=== PATIENT | male | born 1965 | race Caucasian/White ===

== ENCOUNTER 2017-11-21 05:22 | Inpatient (IN) | payer OTHER ==
[2017-11-21] MEDS ORDERED: Lactated Ringer's 2,000 ML IV STA (05:48)
--- NOTE | 2017-11-21 05:48 | C.PDOC ---
History Of Present Illness Pt presents with sudden onset of left flank pain radiating towards the groin. No f/c/n/v. pain is sharp, stabbing, mild dysuria Time Seen by Provider: 11/21/17 05:47 Chief Complaint (Nursing): Male Genitourinary History Per: Patient History/Exam Limitations: no limitations Onset/Duration Of Symptoms: Hrs Current Symptoms Are (Timing): Worse Severity: Severe Pain Scale Rating Of: 8 Quality Of Discomfort: Sharp, Cramping, Pressure, Stabbing Associated Symptoms: denies: Fever, Chills, Nausea, Vomiting Alleviating Factors: None Recent travel outside of the [place]: No Additional History Per: Family Past Medical History Reviewed: Historical Data, Nursing Documentation, Vital Signs Vital Signs: Last Vital Signs Temp 97.5 F L 11/21/17 05:32 Pulse 79 11/21/17 06:48 Resp 22 11/21/17 06:48 BP 100/57 L 11/21/17 06:48 Pulse Ox 95 11/21/17 06:48 Family History: States: No Known Family Hx - Social History Hx Alcohol Use: No Hx Substance Use: No - Immunization History Hx Influenza Vaccination: No Hx Pneumococcal Vaccination: No Review Of Systems Constitutional: Negative for: Fever, Chills Eyes: Negative for: Redness ENT: Negative for: Throat Pain Cardiovascular: Negative for: Chest Pain Respiratory: Negative for: Shortness of Breath Gastrointestinal: Positive for: Abdominal Pain. Negative for: Nausea, Vomiting Genitourinary: Negative for: Dysuria Musculoskeletal: Negative for: Back Pain Skin: Negative for: Rash Neurological: Negative for: Weakness Psych: Negative for: Anxiety Physical Exam - Physical Exam Appears: In Acute Distress Skin: Warm, Dry Head: Normacephalic Eye(s): bilateral: Normal Inspection Oral Mucosa: Moist Neck: Supple Chest: Symmetrical Cardiovascular: Rhythm Regular Respiratory: No Rales, No Rhonchi, No Wheezing Gastrointestinal/Abdominal: Soft, Tenderness (left flank), No Distention, No Guarding Back: CVA Tenderness (left) Male Genital: No Testicular Swelling, No Inguinal Tenderness Extremity: No Tenderness Extremity: Bilateral: Atraumatic Pulses: Left Dorsalis Pedis: Normal, Right Dorsalis Pedis: Normal Neurological/Psych: Oriented x3, Normal Speech, Normal Cognition Gait: Steady ED Course And Treatment - Laboratory Results Result Diagrams: 11/21/17 05:59 11/21/17 05:59 O2 Sat by Pulse Oximetry: 100 Pulse Ox Interpretation: Normal Disposition Counseled Patient/Family Regarding: Studies Performed, Diagnosis - Disposition Disposition Time: 05:48 Condition: UNKNOWN Forms: [facility] ([place]) - Clinical Impression Clinical Impression: Renal colic on left side Physician Patient Turnover Patient Signed Over To: Darrion Cardenas Handoff Comments: pending labs, ct scan and re-eval
[2017-11-21] MEDS ORDERED: Lactated Ringer's 2,000 ML ONE (05:57)
[2017-11-21 06:04] LABS: BASO # 0.1 K/uL (0.0-0.2); BASO % 0.7 % (0.0-2.0); EOS # 0.2 K/uL (0.0-0.7); EOS % 1.6 % (0.0-4.0); HEMOGLOBIN 14.4 g/dL (12.0-18.0); LYMPH # 3.8 K/uL (1.0-4.3); LYMPH % 40.1 % (20.0-40.0); MEAN CORPUSCULAR HEMOGLOBIN 32.6 pg (27.0-31.0); MEAN CORPUSCULAR HGB CONC 35.8 g/dL (33.0-37.0); MEAN PLATELET VOLUME 9.3 fL (7.2-11.7); MONO # 0.6 K/uL (0.0-0.8); MONO % 6.2 % (0.0-10.0); NEUT # 4.9 K/uL (1.8-7.0); NEUT % 51.4 % (50.0-75.0); NRBC % 0.1 % (0.0-2.0); RBC 4.41 Mil/uL (4.40-5.90); RED CELL DISTRIBUTION WIDTH 12.5 % (11.5-14.5); WHITE BLOOD COUNT 9.6 K/uL (4.8-10.8)
[2017-11-21 06:12] LABS: ALB/GLOB RATIO 1.4 (1.0-2.1); ALBUMIN 3.9 g/dL (3.5-5.0); ALT/SGPT 55 U/L (21-72); AST/SGOT 25 U/L (17-59); BLOOD UREA NITROGEN 15 mg/dL (9-20); CALCIUM 8.7 mg/dl (8.6-10.4); GFR AFRICAN-AMERICAN > 60; GFR NON-AFRICAN AMERICAN > 60; LIPASE 50 U/L (23-300)
--- NOTE | 2017-11-21 06:51 | CT ---
EXAM: CT Abdomen and Pelvis Without Intravenous Contrast CLINICAL HISTORY: 52 years old, male; Pain; Abdominal pain; Flank; Left lower quadrant (llq); Additional info: Left flank pain TECHNIQUE: Axial computed tomography images of the abdomen and pelvis without intravenous contrast. All CT scans at this facility use one or more dose reduction techniques, viz.: automated exposure control; ma/kV adjustment per patient size (including targeted exams where dose is matched to indication; i.e. head); or iterative reconstruction technique. Coronal and sagittal reformatted images were created and reviewed. COMPARISON: No relevant prior studies available. FINDINGS: Lower thorax: Minimal atelectasis. ABDOMEN: Liver: Fatty infiltration. Gallbladder and bile ducts: No calcified stones. No ductal dilation. Pancreas: Unremarkable. No ductal dilation. Spleen: No splenomegaly. Adrenals: No mass. Kidneys and ureters: 3.0 cm hypodense lesion within left kidney. No renal calculi. Mild pelvocaliectasis of LEFT kidney. Mildly dilated LEFT ureter. 0.3 x 0.3 x 0.2 cm calculus at or just beyond LEFT ureterovesical junction. Stomach and bowel: Probable underdistention of LEFT colon. No definite mural thickening. No obstruction. Appendix: Normal caliber. No inflammation. PELVIS: Bladder: Unremarkable. No stones. Reproductive: Unremarkable as visualized. ABDOMEN and PELVIS: Intraperitoneal space: No significant fluid collection. No free air. Bones/joints: Early degenerative changes of spine. No acute fracture. Soft tissues: Tiny umbilical hernia containing fat. Vasculature: Unremarkable. No aneurysm. Lymph nodes: No pathologically enlarged lymph nodes. IMPRESSION: 1. LEFT distal ureteral calculus with mild hydroureteronephrosis. 2. Kidney lesion, can completely characterized. Suggest nonemergent ultrasound or MRI. 3. Incidental/non-acute findings are described above.
[2017-11-21] MEDS ORDERED: Potassium Chloride 20 mEq ER Tab PO STA (07:02)
[2017-11-21] MEDS ORDERED: Potassium Chloride 20 mEq ER Tab PO ONE ×3 (07:44→11:38)
[2017-11-21 07:52] LABS: URINE BILIRUBIN NEGATIVE (NEGATIVE); URINE BLOOD 3+ (NEGATIVE); URINE CLARITY Clear (Clear); URINE COLOR Straw (YELLOW); URINE GLUCOSE (UA) NORMAL (Normal); URINE LEUKOCYTE ESTERASE NEG Leu/uL (Negative); URINE NITRATE NEGATIVE (NEGATIVE); URINE PROTEIN NEGATIVE (NEGATIVE); URINE UROBILINOGEN NORMAL mg/dL (0.2-1.0)
[2017-11-21] MEDS ORDERED: Morphine 4 MG/ML VIAL ONE (07:57)
--- NOTE | 2017-11-21 11:25 | CP.PCM.HP ---
History of Present Illness - History of Present Illness History of Present Illness: CC: "I have pain in the left side of my back and into the stomach" HPI: Mr García is a 52 year old male who presented to the emergency room with pain in his left flank. Patient reports that at 5 PM on 11/20/17 he had pain in his penis when using the bathroom and pain dissipated after using the bathroom. At 4 AM on 11/21/17, patient woke up to use the bathroom and experienced pain in his left flank region radiating into his epigastric region. He describes the pain as sharp and stabbing and rates the pain as 10/10 before coming to the emergency room. This is the first time he's had pain like this. Patient was given Morphine and Toradol in the ER and reports a reduction in his pain and rates it 3/10 currently. He also reports using the bathroom and reports no pain when doing so. Patient denies any nausea, vomiting, constipation , diarrhea currently. Patient had a abdominal CT which showed left distal ureteral calculus with mild hydrouretoronephrosis. PMD: Patient reports not having a PMD due to lack of insurance. PMH: Non-contributory PSHx: Non-contributory Allergies: NKDA Home Medications: Patient reports taking Advil at home for pain Social Hx: Social alcohol use. Denies cigarette and illicit drug use. Lives at home with and 3 kids. 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 Family Hx: Father is a prostate and colon cancer survivor, currently 89. Mother is alive and well. Patient has 2 aunts with DM. Present on Admission - Present on Admission Any Indicators Present on Admission: No Review of Systems - Constitutional Constitutional: absent: Chills, Fever - EENT Eyes: absent: Change in Vision - Cardiovascular Cardiovascular: absent: Chest Pain - Respiratory Respiratory: absent: Cough - Gastrointestinal Gastrointestinal: absent: Constipation, Diarrhea, Nausea, Vomiting - Genitourinary Genitourinary: Dysuria, Flank Pain - Integumentary Integumentary: absent: Bleeding Lesions - Neurological Neurological: absent: Dizziness Past Patient History - Past Social History Smoking Status: Never Smoked - PSYCHIATRIC Hx Substance Use: No - SURGICAL HISTORY Hx Surgeries: No - ANESTHESIA Hx Anesthesia: No Meds Allergies/Adverse Reactions: Allergies Allergy/AdvReac Type Severity Reaction Status Date / Time No Known Allergies Allergy Verified 11/21/17 05:37 Physical Exam - Constitutional Appears: In Acute Distress - Head Exam Head Exam: ATRAUMATIC, NORMAL INSPECTION - Eye Exam Eye Exam: EOMI Pupil Exam: PERRL - ENT Exam ENT Exam: Mucous Membranes Moist - Neck Exam Neck exam: Positive for: Normal Inspection. Negative for: Tenderness - Respiratory Exam Respiratory Exam: Clear to Auscultation Bilateral, NORMAL BREATHING PATTERN. absent: Rales, Rhonchi, Wheezes - Cardiovascular Exam Cardiovascular Exam: REGULAR RHYTHM, +S1, +S2. absent: Bradycardia, Tachycardia , JVD, Systolic Murmur - GI/Abdominal Exam GI & Abdominal Exam: Guarding, Normal Bowel Sounds, Tenderness. absent: Distended, Firm Additional comments: Left flank pain radiating into abdomen - Extremities Exam Extremities exam: Positive for: full ROM, normal inspection. Negative for: tenderness - Back Exam Back exam: CVA tenderness (L). absent: rash noted - Neurological Exam Neurological exam: Alert, Normal Gait, Oriented x3 - Psychiatric Exam Psychiatric exam: Normal Affect, Normal Mood - Skin Skin Exam: Intact, Normal Color, Warm Results - Vital Signs Recent Vital Signs: Last Vital Signs Temp 98.9 F 11/21/17 07:59 Pulse 82 11/21/17 07:59 Resp 20 11/21/17 07:59 BP 117/72 11/21/17 07:59 Pulse Ox 99 11/21/17 07:59 - Labs Result Diagrams: 11/21/17 05:59 11/21/17 05:59 Labs: Laboratory Results - last 24 hr 11/21/17 11/21/17 11/21/17 05:59 05:59 07:37 WBC 9.6 RBC 4.41 Hgb 14.4 Hct 40.1 MCV 91.0 MCH 32.6 H MCHC 35.8 RDW 12.5 Plt Count 244 MPV 9.3 Neut % (Auto) 51.4 Lymph % (Auto) 40.1 H [place] % (Auto) 6.2 Eos % (Auto) 1.6 Baso % (Auto) 0.7 Neut # 4.9 Lymph # 3.8 [place] # 0.6 Eos # 0.2 Baso # 0.1 Sodium 134 Potassium 3.1 L Chloride 101 Carbon Dioxide 21 L Anion Gap 15 BUN 15 Creatinine 1.0 Est GFR ( Amer) > 60 Est GFR (Non-Af Amer) > 60 Random Glucose 159 H Calcium 8.7 Total Bilirubin 2.1 H AST 25 ALT 55 Alkaline Phosphatase 86 Total Protein 6.7 Albumin 3.9 Globulin 2.8 Albumin/Globulin Ratio 1.4 Lipase 50 Urine Color Straw Urine Clarity Clear Urine pH 6.0 Ur Specific [place] 1.013 Urine Protein Negative Urine Glucose (UA) Normal Urine Ketones Trace Urine Blood 3+ H Urine Nitrate Negative Urine Bilirubin Negative Urine Urobilinogen Normal Ur Leukocyte Esterase Neg Urine WBC (Auto) 1 Urine RBC (Auto) 24 H Assessment & Plan (1) Renal colic on left side Assessment and Plan: Urology consult, Dr Sigrid Catalan UA with 3+ blood and RBC 24 (high) F/U Urine culture, Blood culture Imaging: CT abd/pelvis w/o PO or IV contrast 11/21: 3.0cm hypodense lesion within left kidney. No renal calculi. Mild pelvocaliectasis of LEFT kidney. Mildly dilated LEFT ureter. 0.3x0.3x0.2cm calculus at or just beyond LEFT ureterovesical junction. Mild hydroureteronephrosis. XRAY abd w/ obl 11/21: Distal left ureteral calculus identified on CT is not evident on these plain radiographs Meds: Ketorolac 30mg IVP Q6H PRN for pain Zofram 4mg IVP Q12H PRN for N/V Lactated Ringer 100cc/hr Abx not indicated - no leukocytosis, UA clean, afebrile Status: Acute (2) Prophylactic measure Assessment and Plan: SCDs, Pharmacotherapy for VTE prophylaxsis not indicated Pepcid 40mg PO QD NPO for now Status: Acute
--- NOTE | 2017-11-21 11:37 | RAD ---
HISTORY: urolithiasis /3mm distal ureteral stone COMPARISON: No prior. FINDINGS: BOWEL: Normal bowel gas pattern. No intra-abdominal mass. No hepatic or splenic enlargement. Right pelvic calculus identified, consistent with phlebolith. The distal left ureteral calculus identified on CT examination of the same date is not evident on these plain radiographs. No renal calculus identified. BONES: Normal. OTHER FINDINGS: None. IMPRESSION: Distal left ureteral calculus identified on CT examination is not evident on these plain radiographs.
[2017-11-21] MEDS ORDERED: Lactated Ringer's 1,000 ML IV SCH (12:45)
[2017-11-21] MEDS ORDERED: Lactated Ringer's 1,000 ML ONE (12:58)
[2017-11-21 14:46] VITALS: BP 97/67; PULSE 78; RESP 18; TEMP 97.9; O2SAT 98
[2017-11-21] MEDS ORDERED: Naproxen 550 mg Tab PO ONE (15:37)
--- NOTE | 2017-11-21 17:13 | CP.PCM.DIS ---
Provider - Provider Date of Admission: 11/21/17 08:40 Attending physician: Jr Mendez MD Primary care physician: None Consults: Urology: Dr Sigrid Catalan Time Spent in preparation of Discharge (in minutes): 40 Diagnosis - Discharge Diagnosis (1) Renal colic on left side Status: Acute Priority: Medium (2) Prophylactic measure Status: Acute Priority: Low Hospital Course - Lab Results Lab Results: Most Recent Lab Values WBC 9.6 K/uL (4.8-10.8) 11/21/17 05:59 RBC 4.41 Mil/uL (4.40-5.90) 11/21/17 05:59 Hgb 14.4 g/dL (12.0-18.0) 11/21/17 05:59 Hct 40.1 % (35.0-51.0) 11/21/17 05:59 MCV 91.0 fL (80.0-94.0) 11/21/17 05:59 MCH 32.6 pg (27.0-31.0) H 11/21/17 05:59 MCHC 35.8 g/dL (33.0-37.0) 11/21/17 05:59 RDW 12.5 % (11.5-14.5) 11/21/17 05:59 Plt Count 244 K/uL (130-400) 11/21/17 05:59 MPV 9.3 fL (7.2-11.7) 11/21/17 05:59 Neut % (Auto) 51.4 % (50.0-75.0) 11/21/17 05:59 Lymph % (Auto) 40.1 % (20.0-40.0) H 11/21/17 05:59 [place] % (Auto) 6.2 % (0.0-10.0) 11/21/17 05:59 Eos % (Auto) 1.6 % (0.0-4.0) 11/21/17 05:59 Baso % (Auto) 0.7 % (0.0-2.0) 11/21/17 05:59 Neut # 4.9 K/uL (1.8-7.0) 11/21/17 05:59 Lymph # 3.8 K/uL (1.0-4.3) 11/21/17 05:59 [place] # 0.6 K/uL (0.0-0.8) 11/21/17 05:59 Eos # 0.2 K/uL (0.0-0.7) 11/21/17 05:59 Baso # 0.1 K/uL (0.0-0.2) 11/21/17 05:59 Sodium 134 mmol/L (132-148) 11/21/17 05:59 Potassium 3.1 mmol/L (3.6-5.2) L 11/21/17 05:59 Chloride 101 mmol/L (98-107) 11/21/17 05:59 Carbon Dioxide 21 mmol/L (22-30) L 11/21/17 05:59 Anion Gap 15 (10-20) 11/21/17 05:59 BUN 15 mg/dL (9-20) 11/21/17 05:59 Creatinine 1.0 mg/dL (0.8-1.5) 11/21/17 05:59 Est GFR ( Amer) > 60 11/21/17 05:59 Est GFR (Non-Af Amer) > 60 11/21/17 05:59 Random Glucose 159 mg/dL (75-110) H 11/21/17 05:59 Calcium 8.7 mg/dl (8.6-10.4) 11/21/17 05:59 Total Bilirubin 2.1 mg/dL (0.2-1.3) H 11/21/17 05:59 AST 25 U/L (17-59) 11/21/17 05:59 ALT 55 U/L (21-72) 11/21/17 05:59 Alkaline Phosphatase 86 U/L (38-126) 11/21/17 05:59 Total Protein 6.7 g/dL (6.3-8.3) 11/21/17 05:59 Albumin 3.9 g/dL (3.5-5.0) 11/21/17 05:59 Globulin 2.8 gm/dL (2.2-3.9) 11/21/17 05:59 Albumin/Globulin Ratio 1.4 (1.0-2.1) 11/21/17 05:59 Lipase 50 U/L (23-300) 11/21/17 05:59 Urine Color Straw (YELLOW) 11/21/17 07:37 Urine Clarity Clear (Clear) 11/21/17 07:37 Urine pH 6.0 (5.0-8.0) 11/21/17 07:37 Ur Specific [place] 1.013 (1.003-1.030) 11/21/17 07:37 Urine Protein Negative mg/dL (NEGATIVE) 11/21/17 07:37 Urine Glucose (UA) Normal mg/dL (Normal) 11/21/17 07:37 Urine Ketones Trace mg/dL (NEGATIVE) 11/21/17 07:37 Urine Blood 3+ (NEGATIVE) H 11/21/17 07:37 Urine Nitrate Negative (NEGATIVE) 11/21/17 07:37 Urine Bilirubin Negative (NEGATIVE) 11/21/17 07:37 Urine Urobilinogen Normal mg/dL (0.2-1.0) 11/21/17 07:37 Ur Leukocyte Esterase Neg [place]/uL (Negative) 11/21/17 07:37 Urine WBC (Auto) 1 /hpf (0-5) 11/21/17 07:37 Urine RBC (Auto) 24 /hpf (0-3) H 11/21/17 07:37 - Hospital Course Hospital Course: CC: "I have pain in the left side of my back and into the stomach" HPI: Mr García is a 52 year old male who presented to the emergency room with pain in his left flank. Patient reports that at 5 PM on 11/20/17 he had pain in his penis when using the bathroom and pain dissipated after using the bathroom. At 4 AM on 11/21/17, patient woke up to use the bathroom and experienced pain in his left flank region radiating into his epigastric region. He describes the pain as sharp and stabbing and rates the pain as 10/10 before coming to the emergency room. This is the first time he's had pain like this. Patient was given Morphine and Toradol in the ER and reports a reduction in his pain and rates it 3/10 currently. He also reports using the bathroom and reports no pain when doing so. Patient denies any nausea, vomiting, constipation , diarrhea currently. Patient had a abdominal CT which showed left distal ureteral calculus with mild hydrouretoronephrosis. PMD: Patient reports not having a PMD due to lack of insurance. PMH: Non-contributory PSHx: Non-contributory Allergies: NKDA Home Medications: Patient reports taking Advil at home for pain Social Hx: Social alcohol use. Denies cigarette and illicit drug use. Lives at home with and 3 kids. 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 Family Hx: Father is a prostate and colon cancer survivor, currently 89. Mother is alive and well. Patient has 2 aunts with DM. HOSPITAL COURSE: Given the patient's imaging results (shown below) the patient was discharged on the same as admission because the urologist felt this issue could be handled outpatient. He was given scripts for Flomax and Percocet and was told to follow- up outpatient with Dr Sigrid Catalan. (1) Renal colic on left side Assessment and Plan: Urology consult, Dr Sigrid Catalan UA with 3+ blood and RBC 24 (high) Imaging: CT abd/pelvis w/o PO or IV contrast /: 3.0cm hypodense lesion within left kidney. No renal calculi. Mild pelvocaliectasis of LEFT kidney. Mildly dilated LEFT ureter. 0.3x0.3x0.2cm calculus at or just beyond LEFT ureterovesical junction. Mild hydroureteronephrosis. XRAY abd w/ obl 11/21: Distal left ureteral calculus identified on CT is not evident on these plain radiographs Meds: Ketorolac 30mg IVP Q6H PRN for pain Zofram 4mg IVP Q12H PRN for N/V Lactated Ringer 100cc/hr Abx not indicated - no leukocytosis, UA clean, afebrile Status: Acute (2) Prophylactic measure Assessment and Plan: SCDs, Pharmacotherapy for VTE prophylaxsis not indicated Pepcid 40mg PO QD NPO for now Status: Acute Discharge Exam - Head Exam Head Exam: ATRAUMATIC, NORMAL INSPECTION - Additional Findings Additional findings: - Constitutional Appears: In Acute Distress - Head Exam Head Exam: ATRAUMATIC, NORMAL INSPECTION - Eye Exam Eye Exam: EOMI Pupil Exam: PERRL - ENT Exam ENT Exam: Mucous Membranes Moist - Neck Exam Neck exam: Positive for: Normal Inspection. Negative for: Tenderness - Respiratory Exam Respiratory Exam: Clear to Auscultation Bilateral, NORMAL BREATHING PATTERN. absent: Rales, Rhonchi, Wheezes - Cardiovascular Exam Cardiovascular Exam: REGULAR RHYTHM, +S1, +S2. absent: Bradycardia, Tachycardia , JVD, Systolic Murmur - GI/Abdominal Exam GI & Abdominal Exam: Guarding, Normal Bowel Sounds, Tenderness. absent: Distended, Firm Additional comments: Left flank pain radiating into abdomen - Extremities Exam Extremities exam: Positive for: full ROM, normal inspection. Negative for: tenderness - Back Exam Back exam: CVA tenderness (L). absent: rash noted - Neurological Exam Neurological exam: Alert, Normal Gait, Oriented x3 - Psychiatric Exam Psychiatric exam: Normal Affect, Normal Mood - Skin Skin Exam: Intact, Normal Color, Warm Discharge Plan - Discharge Medications Prescriptions: oxyCODONE/Acetaminophen [Percocet 5/325 mg Tab] 1 ea PO TID PRN #10 tab PRN Reason: Pain, Moderate (4-7) Tamsulosin [Flomax] 0.4 mg PO STAT #14 cap - Follow Up Plan Condition: UNKNOWN Disposition: HOME/ ROUTINE Instructions: Renal Colic (DC), Renal Colic (GEN) Additional Instructions: Patient medically stable for discharge. Scripts were given for Flomax and percocet. Follow-up with Dr Sigrid Catalan, Urologist. If symptoms worsen or return, please return to ER. Referrals: Jessica Catalan MD [Medical Doctor] -
== END 2017-11-21 15:21 | disposition home or self-care (01) | DRG 324 ==
LOC: C.ER 05:22 → C.9E 08:40 → C.3T 13:33 → C.9E 14:14
PROVIDERS: ADMIT Internal Medicine; ATTEND Internal Medicine
DX: N13.2 Hydronephrosis with renal and ureteral calculous obstruction (principal); Z80.0 Family history of malignant neoplasm of digestive organs; Z83.3 Family history of diabetes mellitus

== ENCOUNTER 2018-12-02 20:20 | Emergency (ER) | payer SELFPAY ==
[2018-12-02 21:03] VITALS: BP 108/72; PULSE 69; TEMP 98; O2SAT 98
[2018-12-02] MEDS ORDERED: Amoxicillin-Clav 875-125 mg Tab PO STA (21:57)
--- NOTE | 2018-12-02 22:00 | C.PDOC ---
History Of Present Illness 53 year old male presents to the ED for evaluation of cough, sore throat, ear pain and body aches which began one week ago. Patient states he began feeling a pressure-like sensation around his nasal and sinus areas over the past three days, which has prompted this visit. Additionally, patient states that his gastric reflux has worsened. Patient denies back pain, urinary complaints, vomiting. Time Seen by Provider: 12/02/18 21:46 Chief Complaint (Nursing): Cough, Cold, Congestion History Per: Patient History/Exam Limitations: no limitations Onset/Duration Of Symptoms: Other (one week ) Current Symptoms Are (Timing): Still Present Additional History Per: Patient Past Medical History Reviewed: Historical Data, Nursing Documentation, Vital Signs Vital Signs: Last Vital Signs Temp 98 F 12/02/18 21:00 Pulse 69 12/02/18 21:00 Resp 22 12/02/18 21:00 BP 108/72 12/02/18 21:00 Pulse Ox 98 12/02/18 21:00 - Medical History PMH: No Chronic Diseases Surgical History: No Surg Hx Family History: States: Unknown Family Hx - Social History Hx Alcohol Use: No Hx Substance Use: No - Immunization History Hx Influenza Vaccination: No Hx Pneumococcal Vaccination: No Review Of Systems ENT: Positive for: Ear Pain, Throat Pain, Other (sinus pressure ) Respiratory: Positive for: Cough Physical Exam - Physical Exam Appears: Non-toxic, No Acute Distress Skin: Normal Color, Warm, Dry Head: Tenderness (with percussion over sinuses ) Eye(s): bilateral: Normal Inspection Ear(s): Bilateral: Normal Nose: Normal, No Discharge Oral Mucosa: Moist Throat: Normal, No Erythema, No Exudate Neck: Supple Chest: Symmetrical, No Deformity, No Tenderness Cardiovascular: Rhythm Regular, No Murmur Respiratory: Normal Breath Sounds, No Rales, No Rhonchi, No Wheezing Extremity: Normal ROM, Capillary Refill (less than 2 seconds ) Neurological/Psych: Oriented x3, Normal Speech, Normal Cognition ED Course And Treatment O2 Sat by Pulse Oximetry: 98 Progress Note: Augmentin PO and Pepcid PO given. On reassessment, patient is resting comfortably, showing no signs of distress and reports an improvement in his symptoms. Patient is stable for discharge. Advised to f/u with PMD within 1- 2 days for further evaluation. Disposition - Disposition Referrals: [facility] [Outside] Disposition: HOME/ ROUTINE Disposition Time: 21:57 Condition: GOOD Additional Instructions: Follow up in Clinic within 2-3 days. Return to ED immediately if feel worse. Prescriptions: Amoxicillin/Clavulanate [Augmentin 875 MG-125 MG] 1 tab PO BID #20 tab Fluticasone Nasal [Flonase] 1 spr NS BID #1 spr Omeprazole 40 mg PO QAM #30 capsule.dr Forms: [employer] (Ugandan) - Clinical Impression Clinical Impression: Upper respiratory infection, Sinusitis, GERD (gastroesophageal reflux disease) - PA / OBSTETRICIAN AND GYNAECOLOGIST / Resident Statement MD/DO has reviewed & agrees with the documentation as recorded. - Scribe Statement The provider has reviewed the documentation as recorded by the Scribe (Felicita Powell) All medical record entries made by the Scribe were at my direction and personally dictated by me. I have reviewed the chart and agree that the record accurately reflects my personal performance of the history, physical exam, medical decision making, and the department course for this patient. I have also personally directed, reviewed, and agree with the discharge instructions and disposition.
[2018-12-02] MEDS ORDERED: Amoxicillin-Clav 875-125 mg Tab PO ONE (22:03)
[2018-12-02 22:35] VITALS: RESP 20
== END 2018-12-02 22:34 | disposition home or self-care (01) ==
LOC: C.ER 20:20
DX: J06.9 Acute upper respiratory infection, unspecified (principal); J32.9 Chronic sinusitis, unspecified; K21.9 Gastro-esophageal reflux disease without esophagitis